=== PATIENT | female | born 1985 | race Caucasian/White ===

== ENCOUNTER 2017-01-13 18:32 | Emergency (ER) | payer MEDICAID ==
[~2017-01-13] VITALS: Ht 154.9 cm; Wt 91.0 kg
[2017-01-13 18:59] VITALS: Ht 154.9 cm; Wt 91.0 kg
[2017-01-13] MEDS ORDERED: IBUPROFEN 600 MG TAB PO ONE (19:30)
[2017-01-13 19:57] LABS: URINE BLOOD (Dip) POC 2+ (NEGATIVE)
--- NOTE | 2017-01-13 20:15 | RADRPT ---
PROCEDURE: US Pelvis Non-OB CLINICAL INDICATION: Vaginal bleeding TECHNIQUE: Images were taken during real time trans pelvic and endovaginal interrogation. Color-fl ow and Doppler interrogation of the ovaries was performed. COMPARISON: None FINDINGS: Uterus: appears normal in size measuring a 7.7 x 4.5 x 3.4 cm. A few small Nabothian cysts are see n within the cervix. The endometrial stripe measures 2 mm. Ovaries: The right ovary measures 2.8 x 2.4 x 2.2 cm and appears unremarkable. The left ovary measures 2.8 x 1.9 x 1.8 cm and appears unremarkable. Vascular flow is demonstrated in each ovary on Doppler. Adnexa: No adnexal mass is identified. Free intraperitoneal fluid: None visualized. IMPRESSION: 1. Normal sized empty uterus with a 0.2 cm endometrial stripe. 2. Normal appearing ovaries with vascular flow demonstrated in each. 3. No adnexal mass or free fluid is identified. Physician Darci Date Time Electronically viewed and signed by Physician Darci on 01/13/2017 20:15 /
--- NOTE | 2017-01-13 20:53 | ERD ---
ER Documentation Chief Complaint Date/Time DATE: 01/13/17 TIME: 20:49 Chief Complaint Vaginal bleed and pelvic pain x8 days HPI Pleasant 31-year-old female presenting to emergency department today for vaginal bleeding. Patient reports she has been bleeding from menstruation 7 days. Patient reports that the blood is bright red, she is saturating 5 peripads a day. With abdominal cramping and back cramping. Patient denies history of dysfunctional uterine bleeding, reports that she usually has menstrual periods that last 5 days. Patient denies possibility of , denies that she is sexually active, last normal menstrual period was 12/12/16. Current menstruation started 01/06/17. Patient denies chest pain, shortness of breath, or dizziness. ROS All systems reviewed and are negative except as per history of present illness. Medications Home Meds Active Scripts Ibuprofen* (Motrin*) 600 Mg Tab, 600 MG PO Q6, #30 TAB Prov:MEGHACECILIO 01/13/17 Allergies Allergies: Coded Allergies: No Known Drug Allergy (Verified Allergy, Unknown, 07/03/13) PMhx/Soc Medical and Surgical Hx: pt denies Medical Hx History of Surgery: Yes (TUBAL LIGATION) Anesthesia Reaction: No Hx Neurological Disorder: No Hx Respiratory Disorders: No Hx Cardiac Disorders: No Hx Psychiatric Problems: No Hx Miscellaneous Medical Probl: No Hx Alcohol Use: No Hx Substance Use: No Hx Tobacco Use: No Smoking Status: Never smoker Physical Exam Vitals Vital Signs Date Time Temp Pulse Resp B/P Pulse Ox O2 Delivery O2 Flow Rate FiO2 01/13/17 18:59 98.5 79 18 124/74 100 Vital signs are stable, triage notes reviewed Physical Exam Const: No acute distress Head: Atraumatic Eyes: Normal Conjunctiva no pallor or jaundice, PERRLA, EOMI ENT: Normal External Ears, Nose and Mouth. Mucous membranes moist Neck: Resp: Clear to auscultation bilaterally Cardio: Abd: Soft, non tender, non distended. Normal bowel sounds no CVA tenderness Skin: No petechiae or rashes Back: No midline or flank tenderness Ext: No cyanosis, or edema Neur: Awake and alert Psych: Normal Mood and Affect Results 24 hrs Laboratory Tests Test 01/13/17 19:55 Bedside Urine Blood 2+ Bedside Urine Glucose (UA) Negative Bedside Urine Ketones (LAB) Negative Bedside Urine Leukocyte Esterase (L Negative Bedside Urine Nitrite (LAB) Negative Bedside Urine Protein (LAB) Negative Bedside Urine pH (LAB) 6.0 Current Medications Medications (Trade) Dose Ordered Sig/Adrian Route PRN Reason Start Time Stop Time Status Last Admin Dose Admin Ibuprofen (Motrin) 600 mg ONCE ONCE PO 01/13/17 19:30 01/13/17 19:31 DC 01/13/17 19:58 Interpretation text Urinalysis negative for leukocytosis or nitrates, positive for microscopic hematuria this is a normal finding with menstruation Urine hCG negative for evidence of Procedures/MDM PROCEDURE: US Pelvis Non-OB CLINICAL INDICATION: Vaginal bleeding TECHNIQUE: Images were taken during real time trans pelvic and endovaginal interrogation. Color-flow and Doppler interrogation of the ovaries was performed. COMPARISON: None FINDINGS: Uterus: appears normal in size measuring a 7.7 x 4.5 x 3.4 cm. A few small Nabothian cysts are seen within the cervix. The endometrial stripe measures 2 mm. Ovaries: The right ovary measures 2.8 x 2.4 x 2.2 cm and appears unremarkable. The left ovary measures 2.8 x 1.9 x 1.8 cm and appears unremarkable. Vascular flow is demonstrated in each ovary on Doppler. Adnexa: No adnexal mass is identified. Free intraperitoneal fluid: None visualized. IMPRESSION: 1. Normal sized empty uterus with a 0.2 cm endometrial stripe. 2. Normal appearing ovaries with vascular flow demonstrated in each. 3. No adnexal mass or free fluid is identified. Physician Darci Date Time Electronically viewed and signed by Physician Darci on 01/13/2017 20:15 Pleasant 31-year-old female presented to emergency department today with her mother with complaint of prolonged vaginal bleeding. Patient states her usual menses 5 days. Patient reports she is on day 7 and still using 5 peripads a day. Patient has low pelvic cramping, back pain, urinary tract infection is probable that ruled out on a normal urinalysis, possibility of ruled out by negative U hCG. Ovarian cysts rupture is ruled out on normal ultrasound. I feel the patient is stable for discharge at this time and will benefit from outpatient treatment for menstrual cramps, and follow-up with gynecology for further testing of prolonged menstruation/vaginal bleeding. I have discussed results, examination findings, the treatment plan with the patient and family present prior to discharge. Indications for emergent reevaluation, side effects of medication were also discussed. All questions were answered. Patient verbalizes understanding and agrees with plan of care. CECILIO [place] Jan 13, 2017 20:53
[2017-01-13] MEDS ORDERED: IBUP-1542 PO (21:00)
[2017-01-13 21:19] VITALS: BP 114/64; PULSE 67; RESP 16; TEMP 98.3
== END 2017-01-13 21:20 | disposition home or self-care (01) ==
LOC: FTE 18:32
DX: N93.9 Abnormal uterine and vaginal bleeding, unspecified (principal); R10.2 Pelvic and perineal pain
CPT/HCPCS: 76830; 76856; 81003; Z7502; Z7610